=== PATIENT | female | born 1955 | race Caucasian/White ===

== ENCOUNTER 2023-02-05 21:19 | Emergency (ER) | payer BC, MEDICARE, OTHER ==
[2023-02-05 21:24] VITALS: PULSE 90
[2023-02-05 21:29] VITALS: BP 110/48
[2023-02-05] MEDS ORDERED: Sodium Chloride 0.9% 10 ML Syringe FLUSH PRN (21:40)
[2023-02-05] MEDS ORDERED: Promethazine 25 MG/ML SDV IM ONE (21:42)
[2023-02-05] MEDS ORDERED: Sodium Chloride 0.9% 1,000 ML IV SCH (21:45)
[2023-02-05] MEDS ORDERED: Potassium Chloride 10 MEQ Tab.ER PO ONE (23:05)
== END 2023-02-05 23:54 | disposition home or self-care (01) ==
LOC: DL.ED 21:19
DX: R11.10 Vomiting, unspecified (principal); F12.10 Cannabis abuse, uncomplicated; E78.00 Pure hypercholesterolemia, unspecified; I10 Essential (primary) hypertension; E11.9 Type 2 diabetes mellitus without complications; E66.9 Obesity, unspecified; Z68.35 Body mass index [BMI] 35.0-35.9, adult; Z91.041 Radiographic dye allergy status; Z88.5 Allergy status to narcotic agent; Z91.040 Latex allergy status; Z88.8 Allergy status to other drugs, medicaments and biological substances; Z79.899 Other long term (current) drug therapy; Z79.82 Long term (current) use of aspirin; Z79.84 Long term (current) use of oral hypoglycemic drugs; Z87.891 Personal history of nicotine dependence
CPT/HCPCS: 36415; 80053; 96360; 96372; 99284; A9270; J2550; J7030; J3490